=== PATIENT | male | born 1995 | race Caucasian/White ===

== ENCOUNTER 2017-04-13 08:55 | Emergency (ER) | payer BC ==
[2017-04-13 09:00] VITALS: BP 111/70; PULSE 68; RESP 16; TEMP 98.2; O2SAT 97
--- NOTE | 2017-04-13 09:18 | EDPHY ---
H & P Stated Complaint: Sent from for eval of rash/ "stiff neck"; no nucchal rigidity noted Time Seen by Provider: 04/13/17 09:09 HPI/ROS: CHIEF COMPLAINT: Flu-like illness, sent from urgent care for evaluation of neck stiffness HISTORY OF PRESENT ILLNESS: The patient presents to the ED as he has had a flu- like illness for the past 4 days. He reports fevers and mild myalgias. The patient denies a significant headache. The patient did report some pain in his neck. He denies any numbness or weakness. The patient denies any vomiting or abdominal pain. He denies sore throat or significant cough. The patient reportedly had a negative strep and flu test at the urgent care. The patient denies significant past medical history. He has developed a fine papular rash over the past several days. REVIEW OF SYSTEMS: A comprehensive 10 point review of systems is otherwise negative aside from elements mentioned in the history of present illness. Source: Patient Exam Limitations: No limitations - Personal History Current Tetanus Diphtheria and Acellular Pertussis (TDAP): Yes - Medical/Surgical History Other PMH: healthy. T&A - Social History Smoking Status: Never smoked - Physical Exam Exam: General Appearance: Alert, no distress Eyes: Pupils equal and round no pallor or injection ENT, Mouth: Mucous membranes moist Respiratory: There are no retractions, lungs are clear to auscultation Cardiovascular: Regular rate and rhythm Gastrointestinal: Abdomen is soft and nontender, no masses, bowel sounds normal Neurological: A&O, normal motor function, normal sensory exam, normal cranial nerves Skin: Fine papular rash on arms and legs trunk and back which appears to be most consistent with a viral exanthem Musculoskeletal: [Neck is supple nontender, no meningeal symptoms Extremities: symmetrical, full range of motion Constitutional: Initial Vital Signs Temperature (C) 36.8 C 04/13/17 08:56 Heart Rate 68 04/13/17 08:56 Respiratory Rate 16 04/13/17 08:56 Blood Pressure 111/70 04/13/17 08:56 O2 Sat (%) 97 04/13/17 08:56 O2 Delivery Mode Room Air Allergies/Adverse Reactions: amoxicillin Allergy (Mild, Verified 04/13/17 09:01) GI Home Medications: Medication Instructions Recorded NK [No Known Home Meds] 04/13/17 Medical Decision Making ED Course/Re-evaluation: The patient is well-appearing without evidence of an obvious bacterial infection. The patient has no clinical evidence of meningitis and I do not feel that a lumbar puncture is indicated. The patient will be advised to continue symptomatic care with Tylenol and ibuprofen. He is given customary return precautions. The patient has had symptoms for greater than 4 days making the benefit of Tamiflu unlikely. Departure - Departure Disposition: Home, Routine, Self-Care Clinical Impression: Viral syndrome Condition: Good Instructions: Viral Syndrome (ED) Additional Instructions: 1. Tylenol and ibuprofen as needed for pain and fever. 2. Return to the ED for markedly worsening symptoms including severe headache with associated neck stiffness, intractable vomiting, difficulty breathing, increasing pain or other concerns.
== END 2017-04-13 09:15 | disposition home or self-care (01) ==
DX: B34.9 Viral infection, unspecified (principal)